=== PATIENT | female | born 1935 | race Caucasian/White ===

== ENCOUNTER 2018-08-07 16:25 | Emergency (ER) | payer OTHER ==
--- NOTE | 2018-08-07 16:44 | EDPHY ---
H & P Time Seen by Provider: 08/07/18 16:28 HPI/ROS: CHIEF COMPLAINT: Syncopal HISTORY OF PRESENT ILLNESS: The patient is brought to the emergency department by her after 3 syncopal events over the past several weeks. The patient is typically wheelchair-bound. He observes the syncopal episodes when he is helping her transfer. The patient did not actually sustain a fall or trauma. Each time she has had a syncopal event he has been able to catch and support her. The patient is anticoagulated with warfarin. The patient has a history of dementia. The patient herself has no acute complaints of pain. The patient has no history of fever, cough, foul smelling urine, diarrhea or other evidence of an acute medical condition. Several weeks ago the patient did have a fall with her . Patient does seem to have some discomfort when she is being transferred now. REVIEW OF SYSTEMS: A comprehensive 10 point review of systems is otherwise negative aside from elements mentioned in the history of present illness. Source: Patient Exam Limitations: No limitations - Medical/Surgical History Hx Asthma: No Hx Chronic Respiratory Disease: No Hx Diabetes: No Hx Cardiac Disease: Yes Hx Renal Disease: No Hx Cirrhosis: No Hx Alcoholism: No Hx HIV/AIDS: No Hx Splenectomy or Spleen Trauma: No Other PMH: pmh- Hypertension, atrial fibrillation, dementia, chf,iron def. anemia, eczema. - Social History Smoking Status: Current every day smoker - Physical Exam Exam: General Appearance: Elderly female, no acute distress Head: Atraumatic Eyes: Pupils equal, round, reactive ENT, Mouth: No hemotympanum, no oral trauma Neck: Nontender, trachea midline Respiratory: No chest wall tender, no subcutaneous air, lungs clear bilaterally Cardiovascular: Regular rate and rhythm Abdomen: Abdomen is soft and nontender, pelvis stable Skin: No lacerations, No abrasion Back: Diffuse tenderness noted throughout the back both in the midline and paraspinal musculature Extremities: Atrophy noted to the bilateral lower extremities Neurological: Alert and oriented x2, gross global motor weakness noted which is chronic per her Constitutional: Initial Vital Signs Temperature (C) 36.5 C 08/07/18 16:44 Heart Rate 78 08/07/18 16:44 Respiratory Rate 18 08/07/18 16:44 Blood Pressure 143/102 H 08/07/18 16:44 O2 Sat (%) 97 08/07/18 16:44 O2 Delivery Mode Room Air Allergies/Adverse Reactions: unknown antibiotic Allergy (Uncoded 02/15/16 12:48) Home Medications: Medication Instructions Recorded Atorvastatin Calcium [Lipitor 10 10 mg PO DAILY 05/05/14 mg (*)] Ergocalciferol [Vitamin D2 (*)] 50,000 unit PO WE@1800 05/05/14 Warfarin Sodium [Coumadin 4MG (*)] 4 mg PO SUMOWETHFRSA@1800 05/05/14 Warfarin Sodium [Coumadin 4MG (*)] 6 mg PO TU@1800 05/05/14 Carvedilol [Coreg (*)] 6.25 mg PO BIDMEAL #60 tab 05/07/14 Ferrous Sulfate [Ferrous Sulf 325 325 mg PO DAILY #30 tab 05/07/14 MG (*)] Ascorbic Acid [Vitamin C 500 mg 500 mg PO DAILY 09/28/14 (*)] Aspirin [Aspirin 325 mg (*)] 325 mg PO DAILY 09/28/14 Calcium Carb W/Vit D [Calcium Carb 500 mg PO DAILY 09/28/14 W/Vit D 500/200 (*)] Cyanocobalamin [Vitamin B12 (*)] 1,000 mcg PO DAILY 09/28/14 Herbals/Supplements -Info Only 1 ea PO DAILY 09/28/14 Furosemide [Lasix] 40 mg PO DAILY #30 tab 10/02/14 Spironolactone 25 mg PO DAILY #30 tablet 10/02/14 Valsartan [Diovan (*)] 40 mg PO BID #60 tab 10/02/14 Meclizine HCl [Meclizine HCl 25 mg 50 mg PO BID PRN #14 tab 11/08/14 (RX,OTC)] Medical Decision Making - Diagnostics EKG Interpretation: EKG: Complete interpretation has been separately recorded in the [facility] archive. Summary impression: Atrial fibrillation, rate 72 Imaging Results: Imaging Impressions Head CT 08/07/18 17:14 Impression: 1. Elderly brain with atrophy and probable white matter small vessel disease. 2. Negative for bleed or other intracranial posttraumatic abnormality. 3. Minimal sinus opacification. Results called and discussed with Rajeev Rivers M.D. on 08/07/2018 at 17:53. Thoracolumbar Spine 08/07/18 18:06 Impression: Negative for definite acute fracture. Lumbar Spine X-Ray 08/07/18 18:07 Impression: Negative for definite acute fracture with prominent degenerative changes as detailed above. Chest X-Ray 08/07/18 18:31 Impression: No definite acute posttraumatic abnormality with findings as detailed above. Pelvis X-Ray 08/07/18 18:31 Impression: Negative for definite fracture in this technically somewhat limited examination. ED Course/Re-evaluation: Patient presents to the ED with a history of multiple falls and now what appears to be increasing pain with movement. The patient is anticoagulated with Coumadin. She has had a fall with a possible head strike in the past several weeks. Additionally the patient appears to be having some discomfort in her back when transferred. The patient was noted to be neurologically intact aside from her chronic dementia in the emergency department. She was taken for noncontrast head CT scan which demonstrated no evidence of intracranial hemorrhage. This was ordered in the setting of her dementia, history of falling, abnormal baseline neurologic examination, age anticoagulant use. Urinalysis demonstrates no evidence of an infection. Given the history of painful movement assist x-rays of the chest, thoracic spine , lumbar spine and pelvis were ordered. There is no evidence of an obvious fracture. In the emergency department we are able to move the patient from a seated to standing position without recurrent pain. I am somewhat concerned about her 's ability to safely transfer her at home and recommended admission to the hospital for PT OT and consideration of possible higher level of care. Family is very adamant about wanting her to go home. They are pursuing home care and will do this tomorrow. They will be discharged home per patient and family wishes. They understand that they can return to the emergency department at any time should they reconsider the decision not to be admitted this evening. Differential Diagnosis: Differential diagnosis considered includes intracranial hemorrhage, thoracic fracture, lumbar fracture, rib fracture, dehydration, metabolic abnormality, urinary tract infection - Data Points Laboratory Results: Laboratory Results 08/07/18 16:40 08/07/18 16:40 08/07/18 08/07/18 08/07/18 17:50 16:47 16:40 WBC RBC Hgb Hct MCV MCH MCHC RDW Plt Count MPV Neut % (Auto) Lymph % (Auto) Bates % (Auto) Eos % (Auto) Baso % (Auto) Nucleat RBC Rel Count Absolute Neuts (auto) Absolute Lymphs (auto) Absolute Monos (auto) Absolute Eos (auto) Absolute Basos (auto) Absolute Nucleated RBC Immature Gran % Immature Gran # Sodium 133 mEq/L L mEq/L (135-145) Potassium 4.8 mEq/L mEq/L (3.5-5.2) Chloride 103 mEq/L mEq/L (97-110) Carbon Dioxide 25 mEq/l mEq/l (22-31) Anion Gap 5 mEq/L L mEq/L (6-14) BUN 20 mg/dL mg/dL (7-23) Creatinine 0.6 mg/dL mg/dL (0.6-1.0) Estimated GFR > 60 Glucose 110 mg/dL H mg/dL (70-100) Calcium 8.9 mg/dL mg/dL (8.5-10.4) POC Troponin I 0.00 ng/mL ng/mL (0.00-0.08) Urine Color YELLOW Urine Appearance MODERATELY TURBID Urine pH 7.0 (5.0-7.5) Ur Specific [place] 1.012 (1.002-1.030) Urine Protein NEGATIVE (NEGATIVE) Urine Ketones NEGATIVE (NEGATIVE) Urine Blood NEGATIVE (NEGATIVE) Urine Nitrate NEGATIVE (NEGATIVE) Urine Bilirubin NEGATIVE (NEGATIVE) Urine Urobilinogen NEGATIVE EU EU (0.2-1.0) Ur Leukocyte Esterase NEGATIVE (NEGATIVE) Urine RBC 1-3 /hpf /hpf (0-3) Urine WBC 0-1 /hpf /hpf (0-3) Ur Epithelial Cells NONE SEEN /lpf /lpf (NONE-1+) Amorphous Sediment PRESENT /hpf /hpf (NONE-1+) Urine Bacteria TRACE /hpf H /hpf (NONE SEEN) Urine Mucus TRACE /lpf /lpf (NONE-1+) Urine Glucose NEGATIVE (NEGATIVE) 08/07/18 16:40 WBC 6.35 10^3/uL 10^3/uL (3.80-9.50) RBC 3.70 10^6/uL L 10^6/uL (4.18-5.33) Hgb 12.6 g/dL g/dL (12.6-16.3) Hct 35.5 % L % (38.0-47.0) MCV 95.9 fL fL (81.5-99.8) MCH 34.1 pg pg (27.9-34.1) MCHC 35.5 g/dL g/dL (32.4-36.7) RDW 12.5 % % (11.5-15.2) Plt Count 174 10^3/uL 10^3/uL (150-400) MPV 8.8 fL fL (8.7-11.7) Neut % (Auto) 59.4 % % (39.3-74.2) Lymph % (Auto) 21.6 % % (15.0-45.0) Bates % (Auto) 14.0 % H % (4.5-13.0) Eos % (Auto) 4.3 % % (0.6-7.6) Baso % (Auto) 0.5 % % (0.3-1.7) Nucleat RBC Rel Count 0.0 % % (0.0-0.2) Absolute Neuts (auto) 3.78 10^3/uL 10^3/uL (1.70-6.50) Absolute Lymphs (auto) 1.37 10^3/uL 10^3/uL (1.00-3.00) Absolute Monos (auto) 0.89 10^3/uL H 10^3/uL (0.30-0.80) Absolute Eos (auto) 0.27 10^3/uL 10^3/uL (0.03-0.40) Absolute Basos (auto) 0.03 10^3/uL 10^3/uL (0.02-0.10) Absolute Nucleated RBC 0.00 10^3/uL 10^3/uL (0-0.01) Immature Gran % 0.2 % % (0.0-1.1) Immature Gran # 0.01 10^3/uL 10^3/uL (0.00-0.10) Sodium Potassium Chloride Carbon Dioxide Anion Gap BUN Creatinine Estimated GFR Glucose Calcium POC Troponin I Urine Color Urine Appearance Urine pH Ur Specific [place] Urine Protein Urine Ketones Urine Blood Urine Nitrate Urine Bilirubin Urine Urobilinogen Ur Leukocyte Esterase Urine RBC Urine WBC Ur Epithelial Cells Amorphous Sediment Urine Bacteria Urine Mucus Urine Glucose Point of Care Test Results: Chemistry 08/07/18 16:47 POC Troponin I 0.00 ng/mL ng/mL (0.00-0.08) Departure - Departure Disposition: Home, Routine, Self-Care Clinical Impression: Back pain due to injury, Dementia, General weakness Condition: Good Instructions: Acute Low Back Pain (ED) Additional Instructions: 1. Please follow-up with your primary care provider for recheck and continue to evaluate her home health options. 2. You have been offered admission to the hospital and declined. Please note that you can return to the emergency department at any time should you reconsider your decision the home this evening. Referrals: Patient,NotPresent [Unknown] - As per Instructions
[2018-08-07 16:49] LABS: PLATELET COUNT 174 10^3/uL (150-400)
--- NOTE | 2018-08-07 17:14 | CPEKG ---
Test Reason : OPEN Blood Pressure : / mmHG Vent. Rate : 072 BPM Atrial Rate : 000 BPM P-R Int : 187 ms QRS Dur : 100 ms QT Int : 413 ms P-R-T Axes : 000 -06 026 degrees QTc Int : 453 ms Atrial fibrillation Anterior infarct, old Confirmed by Rajeev Rivers ([id number]) on 08/07/2018 5:13:30 PM Referred By: Rajeev Rivers Confirmed By:Rajeev Rivers
[2018-08-07 19:54] VITALS: BP 138/75
--- NOTE | 2018-08-08 17:43 | ASMTCMCOM ---
CM Note CM Note Notes: Late Entry from 08/07/18 and follow up today: Pt presented to the ED for multiple falls/syncopal events. Pt accompanied to the ED by her , Dav, and son, Carlyle. CM requested to speak to Dav and Carlyle re: setting up non-skilled and skilled homecare services. Pt has dementia and Don is cares for her at their private home. The last few days pt has been having difficulty transferring and has had a couple of falls where Don could not physically assist; Carlyle has been staying with the pt and Don the last few days and assisting. CM provided Dav and Carlyle w/a [employer], various non-skilled and skilled HC agency lists, [employer] pamphlet, [facility] pamphlet, etc. Pt had been admitted to [facility] in 2014 and was referred to [facility] at the time but it appears services were never started. Pt's daughter and son-in-law also arrived to the ED and expressed concern re: Don being the sole caregiver of the pt. They think pt needs 24/7 care and that Dav is not able to safely and adequately provide he level of care anymore; per pt's daughter Dav has been "stubborn" and reluctant to accept help in the home. Per daughter, Dav is afraid of people "not being able to care for as well as he does." Family aware that 24/7 care is private pay and they said "That is not a problem. Money is not an issue. It is getting him (Dav) to accept the help." Pt's PCP is Dr Doyle at [facility] (formerly known as [facility] - ). This CM called today and spoke w/CHRISTINE Gallegos for Dr Doyle and relayed pt's ED visit info and the family's need for help w/getting HC set up. Rosy states they are scheduled to see the pt this Thursday 08/10 and she will make sure Dr Doyle is aware of pt's recent syncopal events, falls, and need for homecare. CM available for further assistance if needed. Date Signed: 08/08/2018 05:42 PM Electronically Signed By:Twila Martinez RN
== END 2018-08-07 20:23 | disposition home or self-care (01) ==
LOC: EDUNIT#
DX: M54.9 Dorsalgia, unspecified (principal); F03.90 Unspecified dementia, unspecified severity, without behavioral disturbance, psychotic disturbance, mood disturbance, and anxiety; R53.1 Weakness; R55 Syncope and collapse
CPT/HCPCS: 84484-ER